=== PATIENT | female | born 1990 | race Asian ===

== ENCOUNTER 2021-05-02 13:31 | Emergency (ER) | payer SELFPAY ==
[~2021-05-02] VITALS: Ht 154.9 cm; Wt 72.6 kg
[2021-05-02 13:39] VITALS: BP_SYST 128
[2021-05-02] MEDS ORDERED: KETOROLAC TROMETHAMINE 60 MG/2 ML VIAL IM ONE (14:30)
[2021-05-02 14:59] LABS: BASOPHILS % (AUTO) 0.5 % (0.0-2.0); EOSINOPHILS # (AUTO) 0.3 K/uL (0.0-0.4); EOSINOPHILS % (AUTO) 3.6 % (0.0-4.0); HEMATOCRIT 43.9 % (36-48); HEMOGLOBIN 14.8 g/dL (12.0-16.0); LYMPHOCYTES # (AUTO) 2.3 K/uL (1.0-5.5); MEAN CORPUSCULAR HEMOGLOBIN 30 pg (27-31); MEAN CORPUSCULAR HGB CONC 34 % (32-36); MEAN CORPUSCULAR VOLUME 88 fL (79.0-98.0); MONOCYTES # (AUTO) 0.7 K/uL (0.0-1.0); MONOCYTES % (AUTO) 7.6 % (1.7-9.3); NEUTROPHILS # (AUTO) 5.7 K/uL (1.8-7.7); NEUTROPHILS % (AUTO) 63.3 % (40.0-70.0); PLATELET COUNT (AUTO) 382 K/uL (130-430); RED CELL DISTRIBUTION WIDTH 13.5 % (9.0-15.0)
[2021-05-02 15:20] LABS: CALCIUM 8.8 mg/dL (8.4-11.0); POTASSIUM 3.8 mmol/L (3.5-5.1)
[2021-05-02 15:21] LABS: ALBUMIN 4.1 g/dL (3.4-4.8); CREATININE 0.79 mg/dL (0.55-1.30); TOTAL BILIRUBIN 0.5 mg/dL (0.0-1.0)
[2021-05-02 15:26] LABS: BILIRUBIN,URINE NEGATIVE (NEGATIVE); BLOOD, URINE NEGATIVE (NEGATIVE); CLARITY/URINE CLEAR (CLEAR); COLOR,URINE YELLOW (YELLOW); GLUCOSE,URINE NEGATIVE (NEGATIVE); KETONES,URINE 1+ (NEGATIVE); LEUKOCYTE ESTERASE ,URINE NEGATIVE (NEGATIVE); NITRITE, URINE NEGATIVE (NEGATIVE); PROTEIN URINE NEGATIVE (NEGATIVE); UROBILINOGEN,URINE 0.2 (0.2-1.0)
[2021-05-02 15:26] LABS: C-REACTIVE PROTEIN QUANT 0.5 mg/dL (0-0.5)
[2021-05-02 16:02] LABS: PROTHROMBIN TIME 10.3 SECS (9.5-12.5)
[2021-05-02] MEDS ORDERED: IBUP-1969 PO (16:23)
[2021-05-02] MEDS ORDERED: HYDR-3917 PO (16:23)
[2021-05-02 16:34] VITALS: BP_SYST 128
== END 2021-05-02 16:34 | disposition home or self-care (01) ==
LOC: SED 13:31
DX: K80.50 Calculus of bile duct without cholangitis or cholecystitis without obstruction (principal); Z79.899 Other long term (current) drug therapy
CPT/HCPCS: 36415; 80053; 81003; 81025; 82150; 83605; 83690; 84484; 84703; 85025; 85610; 85730; 86140; 96372; 99283; J1885